=== PATIENT | male | born 1995 | race Caucasian/White ===

== ENCOUNTER 2021-09-25 00:15 | Emergency (ER) | payer OTHER ==
[~2021-09-25] VITALS: Ht 182.9 cm; Wt 90.7 kg
--- NOTE | 2021-09-25 00:20 | NUR ---
STEPHANIE SILVESTRE. TAKEN TO CHAIR C
[2021-09-25 00:21] VITALS: BP 142/75
--- NOTE | 2021-09-25 00:26 | NUR ---
EXAMINED BY DR SRINIVASAN
--- NOTE | 2021-09-25 00:27 | NUR ---
PATIENT BIB [place] [employer]. PATIENT EXAMINED BY DR. SRINIVASAN. PATIENT MEDICALLY CLEARED AND RELEASED IN CUSTODY IN STABLE CONDITION. ORIGINAL PRE-BOOK FORM GIVEN TO OFFICER [employer], #[id number].
== END 2021-09-25 00:27 ==
LOC: MED 00:15
DX: S00.31XA Abrasion of nose, initial encounter (principal); Z02.89 Encounter for other administrative examinations; V89.2XXA Person injured in unspecified motor-vehicle accident, traffic, initial encounter; Y93.89 Activity, other specified; Y92.89 Other specified places as the place of occurrence of the external cause; Y99.8 Other external cause status
CPT/HCPCS: 99283